=== PATIENT | female | born 1935 | race Caucasian/White ===

== ENCOUNTER 2017-05-06 08:44 | Inpatient (IN) | payer MEDICARE, OTHER ==
[~2017-05-06] VITALS: Ht 162.6 cm; Wt 88.4 kg
--- NOTE | ~2017-05-06 | US140 ---
[facility] A Service of [facility] & [facility] RADIOLOGY TEXT RESULTS PATIENT: ALEXANDER QUINONEZ LOCATION: [facility] 327-01 : 36 UNIT #: [id number] AGE: [address]: Mareg Ronquillo MD SEX: F ORDER DR: [id number] [facility] [address] [place], [place] [address] [id number] I MR#: [id number] Acc #: [id number] NAME: ALEXANDER QUINONEZ : 1935 SEX: F STUDY DATE/TIME: 05/09/2017 10:14 UNIT: [address] ROOM: [facility] STUDY DESCRIPTION: US UE Veins Unilat or Ltd Stdy Ordering Physician: Marge Ronquillo M.D. MEDICAL IMAGING REPORT This report is preliminary unless electronic signature is present EXAM Left upper extremity duplex Doppler venous ultrasound COMPARISON STUDIES None. HISTORY 81-year-old female with edema and bruising of the left arm since yesterday. FINDINGS Left internal jugular vein, subclavian, axillary, cephalic, basilic and brachial veins are fully compressible with internal color flow. IMPRESSION No evidence of venous thrombosis in the left upper extremity. Dictated by... Chris Garcia M.D. THIS IS AN ELECTRONICALLY VERIFIED REPORT Chris Garcia M.D. at 05/15/2017 9:13 PM LORRAINE/etelvina TD: 05/09/2017 15:27 JOB #: [id number] MEDICAL IMAGING REPORT Page 1 of 1 COPY
--- NOTE | ~2017-05-06 | FU ---
[facility] Nutrition Therapy DATE: 05/14/17 Patient: ALEXANDER QUINONEZ Physician: ZACKERY Address: [address] [place] [address] Room/Bed: [address] [place] [address], Zip: [place] [address] Admit Date: 05/06/17 Date of : 36 Height: 5 4 Weight: 194 88.4 NUTRITION MONITORING/FOLLOW-UP: Reason: Consult for enteral nutrition recommendations Anthropometrics: Ht: 64" Wt: 86 kg BMI: 32 Wt 05/14: 88.4 kg Labs: Na+ 133 K+ 3.2 Cl- 99 Gluc 155 BUN 7 Creat 0.5 Ca++ 8.2 Accuchecks 144-173 HgbA1C 6.3 Meds: Zestril, novolog, NaCl, KCl, spironolactone, protonix, lipitor I&O's: , last BM 05/08 Skin: Redness to sacral area Edema: 2+ LUE 1+ RUE Estimated Nutrition Needs: 2465-7301 kcals (18-22 kcals/kg) 86-103 grams protein (1.0-1.2 grams/kg) Diet: Pureed with NTL (currently NPO in Layer) Assessment: Chart reviewed, events noted. Pt is now POD#1 for PEG placement for poor nutritional intake. RD consulted to recommend enteral nutrition regimen. Per information in chart, surgical team wishes to start enteral nutrition at 30 ml/hr. RD spoke with MD, who reports that the pt is likely consuming ~20% of meals and will remain on diet per SCIENCE AND OPERATIONS OFFICER recommendations. Per previous nutrition assessment on 05/11, the pt's intake was poor. Pt is likely being discharged to rehab today per MD noted. Nutrition diagnosis updated. Dx: Inadequate oral intake RT CVA, poor appetite AEB RN report, SCIENCE AND OPERATIONS OFFICER evaluation, PEG placed- ACTIVE Intervention: 1. Diet per SCIENCE AND OPERATIONS OFFICER 2. Enteral nutrition Monitoring, Evaluation and Goals: 1. Oral intake; consume 50-100% of meals- NOT MET 2. GI; promote regular GI function- NOT MET (BM NOT DOCUMENTED SINCE 05/08) [facility] Nutrition Therapy DATE: 05/14/17 Patient: ALEXANDER QUINONEZ Physician: ZACKERY Address: [address] [place] [address] Room/Bed: [address] [place] [address], Zip: [place] [address] Admit Date: 05/06/17 Date of : 36 Height: 5 4 Weight: 194 88.4 3. Skin; prevent breakdown- MET/ IN PROGRESS NEW GOALS (IN ADDITION TO ABOVE): 1. Enteral nutrition; tolerate and provide >80% goal volume x 24 hrs Recommendations: 1. Once medically feasible, initiate enteral nutrition with Jevity 1.5 @ 30 mL/hr per surgical team orders. If ok per surgical team, recommend to increase by 10 mL q 8 hrs as tolerated to goal of 50 mL/hr. This will provide: 1800 kcals/ 76 grams protein/ 912 mL free H20 2. Continue diet per SCIENCE AND OPERATIONS OFFICER recommendations, and continue SCIENCE AND OPERATIONS OFFICER at rehab if the pt is discharged. 3. Encourage and assit with PO intake. Pt requires feeding assistance. 4. Replete electrolytes to WNL PRN (K+, Na+, Ca++ low). 5. Optimize the pt's bowel regimen, with last noted BM 05/08. Status: Pt is at moderate nutritional risk. RD will follow hospital course per protocol. Respectfully, STACY SHAH RD, LD Food and Nutritional Services [facility] cc: client file
--- NOTE | ~2017-05-06 | CR58 ---
[facility] A Service of [facility] & [facility] RADIOLOGY TEXT RESULTS PATIENT: ALEXANDER QUINONEZ LOCATION: [facility] CICCU3-21 : 36 UNIT #: [id number] AGE: [address]: Thiago Villaseñor MD SEX: F ORDER DR: [id number] [facility] [address] [place], [place] [address] [id number] P MR#: [id number] Acc #: [id number] NAME: ALEXANDER QUINONEZ : 1935 SEX: F STUDY DATE/TIME: 05/06/2017 09:40 UNIT: [facility] ROOM: STUDY DESCRIPTION: CR Cervical Spine 2 or 3 Views Attending Physician: Thania Orourke M.D. Ordering Physician: Thania Orourke M.D. MEDICAL IMAGING REPORT This report is preliminary unless electronic signature is present EXAM Cervical spine series, 05/06/2017 09:40 hours HISTORY 81-year-old with history of diabetes complaining of neck pain, left body weakness and altered mental status today. COMPARISON None FINDINGS AP, lateral, lateral swimmer's view and open mouth views were performed. Films are limited. C1-C7 are visualized on the swimmer's view. There is no prevertebral soft tissue swelling or fracture. There is multilevel facet degenerative change. No acute malalignment. IMPRESSION Somewhat limited films do demonstrate C1-T1 on the swimmer's view. No fracture, disc height loss or malalignment is seen. Dictated by... Cayla Jade M.D. THIS IS AN ELECTRONICALLY VERIFIED REPORT Cayla Jade M.D. at 05/06/2017 2:31 PM ELLIE/heather TD: 05/06/2017 10:55 JOB #: [id number] MEDICAL IMAGING REPORT Page 1 of 1 COPY
--- NOTE | ~2017-05-06 | CT71 ---
[facility] A Service [facility] RADIOLOGY TEXT RESULTS PATIENT: ALEXANDER QUINONEZ LOCATION: [facility] : 36 UNIT #: [id number] AGE: [address]: REGINALD GARZAJ V SEX: F ORDER DR: [id number] [facility] [address] [place], [place] [address] [id number] I MR#: [id number] Acc #: [id number] NAME: ALEXANDER QUINONEZ : 1935 SEX: F STUDY DATE/TIME: 05/06/2017 23:57 UNIT: [facility] ROOM: [facility] STUDY DESCRIPTION: CT Head Wo Contrast Attending Physician: Thiago Villaseñor M.D. Ordering Physician: Matt Christian M.D. Primary Care Physician: Primary Care Physician No MEDICAL IMAGING REPORT This report is preliminary unless electronic signature is present EXAM CT scan of the head without contrast INDICATION Left-sided weakness and slurred speech starting today at 7 a.m. Patient has had tPA. Also has headaches, confusion and dementia. COMPARISON 05/06/2017 08:55. FINDINGS Unenhanced images were obtained through the brain. This CT examination was performed with one or more of the following radiation dose reduction techniques: automatic exposure control, adjustment of mA and/or kV according to patient size, and iterative reconstruction. There is generalized atrophy. There is some old ischemic change in the left parietal occipital cortex. There is no hemorrhage. IMPRESSION Atrophy and old left parietal occipital ischemic change. No evidence of hemorrhage. Dictated by... Kameron Miguel M.D. THIS IS AN ELECTRONICALLY VERIFIED REPORT Kameron Miguel M.D. at 05/07/2017 1:32 PM PATRICE/davide [facility] A Service [facility] RADIOLOGY TEXT RESULTS PATIENT: ALEXANDER QUINONEZ LOCATION: [facility] : 36 UNIT #: [id number] AGE: [address]: JUAN GARZA V SEX: F ORDER DR: TD: 05/07/2017 08:21 JOB #: [id number] MEDICAL IMAGING REPORT Page 1 of 1 COPY
--- NOTE | ~2017-05-06 | EKG ---
PATIENT: ALEXANDER QUINONEZ UNIT #: [id number] Ventricular Rate: 57 BPM Atrial Rate: 57 BPM P-R Interval: 172 ms QRS Duration: 92 ms Q-T Interval: 496 ms QTC Calculation(Bezet): 482 ms P [place]: -78 degrees Calculated R [place]: -21 degrees Calculated T [place]: 43 degrees Diagnosis Line: Unusual P axis, possible ectopic atrial Diagnosis Line: bradycardia Diagnosis Line: Nonspecific ST and T wave abnormality Diagnosis Line: Prolonged QT Diagnosis Line: Abnormal ECG Diagnosis Line: When compared with ECG of 06-MAY-2017 22:29, Diagnosis Line: Ectopic atrial rhythm has replaced Sinus rhythm Diagnosis Line: T wave inversion no longer evident in Diagnosis Line: Anterolateral leads Diagnosis Line: Confirmed by NILS LLANOS MD ([id number]) on Diagnosis Line: 05/10/2017 12:14:36 PM INTERPRETING MD: TRA
--- NOTE | ~2017-05-06 | CT24 ---
[facility] A Service of [facility] & [facility] RADIOLOGY TEXT RESULTS PATIENT: ALEXANDER QUINONEZ LOCATION: [facility]3-21 : 36 UNIT #: [id number] AGE: [address]: Thiago Villaseñor MD SEX: F ORDER DR: [id number] [facility] [address] [facility] [place], [place] [address] [id number] P MR#: [id number] Acc #: [id number] NAME: ALEXANDER QUINONEZ : 1935 SEX: F STUDY DATE/TIME: 05/06/2017 9:04 UNIT: [facility] ROOM: STUDY DESCRIPTION: CT Angio Neck Stroke Attending Physician: Thania Orourke M.D. Ordering Physician: Thania Orourke M.D. MEDICAL IMAGING REPORT This report is preliminary unless electronic signature is present EXAM CT scan of the neck with contrast with carotid CT angiography. HISTORY Left-sided weakness, slurred speech onset this morning. FINDINGS Please see CT angio head for results. Dictated by... Tyler Arriaga M.D. THIS IS AN ELECTRONICALLY VERIFIED REPORT Tyler Arriaga M.D. at 05/06/2017 4:33 PM ROLLY/kacie TD: 05/06/2017 10:53 JOB #: [id number] MEDICAL IMAGING REPORT Page 1 of 1 COPY
--- NOTE | ~2017-05-06 | CR150 ---
[facility] A Service of [facility] RADIOLOGY TEXT RESULTS PATIENT: ALEXANDER QUINONEZ LOCATION: [facility]- : 36 UNIT #: [id number] AGE: [address]: Thiago Villaseñor MD SEX: F ORDER DR: [id number] [facility] [address] [place], [place] [address] [id number] P MR#: [id number] Acc #: [id number] NAME: ALEXANDER QUINONEZ : 1935 SEX: F STUDY DATE/TIME: 05/06/2017 09:46 UNIT: SANKET ROOM: STUDY DESCRIPTION: CR Hip Min 2 Views Lt Attending Physician: Thania Orourke M.D. Ordering Physician: Thania Orourke M.D. MEDICAL IMAGING REPORT This report is preliminary unless electronic signature is present EXAM Left hip 05/06/2017 0946 hours HISTORY 81-year-old with left hip pain, left body weakness, altered mental status today. COMPARISON None. FINDINGS AP pelvis and frog lateral view left hip demonstrate joint space loss and spurring at both hips and both sacroiliac joints and the pubic symphysis. There is no acute fracture seen. There is a Bell catheter in the bladder and some contrast in the ureters and bladder likely from earlier CT angiogram of the head contrast administration. IMPRESSION No pelvic or hip fracture. There is degenerative change at the sacroiliac joints, hip joints and pubic symphysis. Dictated by... Cayla Jade M.D. THIS IS AN ELECTRONICALLY VERIFIED REPORT Cayla Jade M.D. at 05/06/2017 2:31 PM ELLIE/davide TD: 05/06/2017 10:57 JOB #: [id number] MEDICAL IMAGING REPORT [facility] A Service of [facility] RADIOLOGY TEXT RESULTS PATIENT: ALEXANDER QUINONEZ [facility]ATION: [facility] : 36 UNIT #: [id number] AGE: [address]: Thiago Villaseñor MD SEX: F ORDER DR: Page 1 of 1 COPY
--- NOTE | ~2017-05-06 | FU ---
[facility] Nutrition Therapy DATE: 05/11/17 Patient: ALEXANDER QUINONEZ Physician: ZACKERY Address: [address] [place] [address] Room/Bed: [address] [place] [address], Zip: [place] [address] Admit Date: 05/06/17 Date of : 36 Height: 5 4 Weight: 187 85 NUTRITION MONITORING/FOLLOW-UP: Reason: Nutrition follow-up 81 y/o female admitted for CVA Anthropometrics: ht: 5'4" wt: 187# (85 kg) BMI 32 -Admit weight: 189# Labs: Cl- 114, Glu 148, Alb 2.6, Accuchecks 138-170, HgbA1c 6.3 Meds: zestril, plavix, novolog, NaCl I&O's: 1365/950. BM 05/08 Skin: previously noted Diet: pureed + nectar thickened liquids Assessment: Chart reviewed, events noted. Pt seen for nutrition follow up. Pt currently on pureed diet + nectar thickened liquids. RD internet sales director visited pt at bedside, pt very confused and lethargic, unable to report what she had for breakfast. Pt reports having a poor appetite. Pt was agreeable to ensure pudding BID to increase intake. RN reported that the pt ate <25% of her breakfast. RD to continue to follow. Dx: Inadequate oral intke r/t CVA, current condition AEB NPO status -ACTIVE/RESOLVED NEW Dx: Inadequate oral intake r/t current condition, poor appetite aeb pt and RN report, SNOW MAKER following. Intervention: 1. Pureed diet + nectar thick liquids Monitoring, Evaluation and Goals: 1. Intake; per SNOW MAKER, if diet advanced, consume/tolerate >50% of all meals -NOT MET 2. Enteral nutrition; if appropriate and if initiated provide >80% estimated goal volume -NOT ACTIVE/UNMEASURED 3. GI; promote regular GI function -IN PROGRESS 4. Skin; prevent skin breakdown -MET/IN PROGRESS New Goals: 1. Intake; consume/tolerate >50% of all meals and supplements [facility] Nutrition Therapy DATE: 05/11/17 Patient: ALEXANDER QUINONEZ Physician: ZACKERY Address: [address] [place] [address] Room/Bed: [address] [place] [address], Zip: [place] [address] Admit Date: 05/06/17 Date of : 36 Height: 5 4 Weight: 187 85 Recommendations: 1. Add healthy heart diet order to current pureed diet + nectar thickened liquids. 2. Chocolate Magic Cup BID with meals. 3. Encourage adequate PO intake. Patient may need assistance with ordering meals. RD will f/u per protocol as pt is at mild/moderate nutritional risk. Respectfully, VILLA VICKERS, internal grinding machine operator Ryan Pandey MS, RD, LD Food and Nutritional Services [facility] cc: client file
--- NOTE | ~2017-05-06 | HM ---
Unit #: [id number] #: [id number] Patient: ALEXANDER QUINONEZ [id number] [place], [place] [address] [id number] I MR#: [id number] NAME: ALEXANDER QUINONEZ : 1935 SEX: F STUDY DATE/TIME: 05/11/2017 UNIT: C3A PCU ROOM: [facility] STUDY DESCRIPTION: Attending Physician: Marge Ronquillo M.D. Primary Care Physician: No Primary Care Physician CARDIOLOGY REPORT EXAM 24-hour Holter monitor. DATE APPLIED 05/11/2017 DATE SCANNED 05/12/2017 READ BY [facility]. ORDERED BY Apolonia Villaseñor A.P.R.N. REASON FOR STUDY Rule out atrial fibrillation, left-sided weakness. SUMMARY The patient was monitored for about 15 hours. There were many breaks in the monitoring cycle. A total of 20,925 QRS complexes were analyzed, 10% of which were supraventricular in origin. Minimum heart rate was 48 beats per minute. The rhythm was sinus throughout. Average heart rate 63 beats per minute and maximum heart rate 86 beats per minute at approximately 7 p.m. There were no significant pauses. Supraventricular ectopy: 1780 isolated beats with several couplets, bigeminal in runs. The fastest run of the 14 runs was just three beats in duration at 151 beats per minute. Ventricular ectopy: 67 isolated beats with no runs. Symptoms: None. IMPRESSION 1. Very short monitoring. 2. No significant dysrhythmias. Dictated by... Jorge Luis Guajardo M.D. Unit #: [id number] #: [id number] Patient: ALEXANDER QUINONEZ KARLA/hosea TD: 05/13/2017 12:38 JOB #: [id number] CARDIOLOGY REPORT Page 1 of 1 X Jorge Luis Guajardo MD HOLTER MONITOR REPORT
--- NOTE | ~2017-05-06 | CO ---
Unit #: [id number] #: [id number] Patient: ALEXANDER QUINONEZ [id number] [facility] [address] [facility]. [place], [place] [address] [id number] Gissel MR#: [id number] NAME: ALEXANDER QUINONEZ ROOM: CIC3 Age: 81 Sex: F Admission Date: 05/06/2017 : 1935 Attending Physician: Thiago Villaseñor M.D. Primary Care Physician: Heena Primary Care Physician Requesting Physician: Thania Orourke M.D. Consultation Date: 05/06/2017 CONSULTATION REPORT PATIENT IDENTIFICATION This is an 81-year-old female evaluated initially in the emergency room. She is now currently in ICU 21 at [facility]. The patient was seen initially via the robot by Dr. Christian as part of code stroke protocol in the emergency room. I followed up with evaluation in person in the emergency room and we both followed up in the ICU with reevaluation after the patient was transferred up here. HISTORY OF PRESENT ILLNESS This is an 81-year-old female with a past medical history of dementia, questionable diabetes and prior infarct seen on the CT scan. She presents to [facility] with new onset fall, left-sided weakness and slurred speech. Her last known well was about 7 o'clock this morning. She apparently lives in an assisted living type facility and was last seen at 7 o'clock in the morning at her normal baseline. She was then found an hour or so later and she had fallen in the floor. Her left side was weak. EMS was called and she was brought here as a code stroke. Dr. Christian evaluated the patient via the robot and given that she had a measurable disabling deficit on exam and she was within the window, he elected to treat her with IV Alteplase, which she received. Please see the code stroke form. She arrived at the emergency department at 8:43. She received Alteplase at 9:28. She was admitted to the ICU for further evaluation. Her initial NRH was 7. Her weakness and facial droop have improved some. She has some fluctuations in her mental status. Her son reports that she has dementia at baseline. She does not have any new or worsening focal deficits or any complaints of headache. She is noted to have lack of horizontal movement of her right eye, which was not clearly seen initially, but looking at her MRI that we did STAT she does have a pontine infarct. Dr. Christian believes that is part of her evolution of stroke and recommends continuing treatment. She went for MRI at approximately 12:45 after Alteplase was administered. There is no evidence of hemorrhage on evaluation. She has had some blood pressure fluctuations, but she tenses up when checking her blood pressure with automatic cuff. When nursing checks her blood pressure manually it is well within the parameters for treatment. She has received one dose of IV hydralazine and we have been hesitant to give her any labetalol as she is in sinus bradycardia with a heart rate in the 50s. There has been no report of any exacerbating or alleviating factors. Again, she was treated with IV Alteplase. On arrival her head CT showed generalized atrophy and two small chronic infarcts in the left MCA distribution, but no acute findings in the right cerebral hemisphere or acute findings otherwise and no hemorrhage. CT angiogram of the head and neck was done, which does show areas of stenosis and significant atherosclerotic intracranial disease and this is prominently involving the proximal half of the basilar Unit #: [id number] #: [id number] Patient: QUINONEZ,ALEXANDER artery, the distal P2 segment of the SKIVER COUNTER on the right and the distal aspect of the right M1 segment, but no clot or vascular cutoff seen. The patient's stroke is subcortical. Carotid bifurcations are widely patent with no stenosis by NASCET criteria and no major branch vessel cutoff seen intracranially. Noted nonspecific ground glass infiltrate or mass of the superior segment of the right lower lobe. Refer to the primary for consideration of dedicated chest CT for further evaluation. The patient shows no signs of CHF or fluid overload on examination. Her BNP is 51. Her urinalysis shows 100 glucose, but is otherwise unremarkable. CBC on admission shows a white blood cell count of 9.2, hemoglobin 11.5, hematocrit 35.7 and platelet count of 142. PAST MEDICAL HISTORY 1. Dementia. 2. Borderline diabetes per the emergency room notes. 3. Prior infarcts on the CT scan. SOCIAL HISTORY The patient lives at an assisted living facility. She has baseline dementia. No tobacco use, alcohol abuse or illicit drug use. FAMILY HISTORY Noncontributory given her stated age of 81. ALLERGIES No known drug allergies. HOME MEDICATIONS According to the son, she only takes one medication at home and believes it to be Aricept. REVIEW OF SYSTEMS Unable to fully obtain from the patient. Otherwise pertinent positives are as listed above. Otherwise negative. Fourteen point review of systems was attempted. PHYSICAL EXAMINATION VITALS: Temperature 97.8, afebrile, pulse 53, respiratory rate 20, last manual blood pressure was 165 systolic. She has had some elevated pressures over 180/105 following Alteplase administration. She has received hydralazine. However, with repeat manual pressures they are consistently below 180/105. She does have trouble tolerating the cuff and lying still with the automatic blood pressure machine. NEUROLOGIC EXAMINATION The patient has been a little bit drowsy since she arrived, but she is arousable. She is not fully oriented. She can follow simple commands. She does not appear to have any aphasia. She is dysarthric. She does not appear to have any apraxia. CRANIAL NERVES: She demonstrates full zavaleta of vision. Eyes initially appear to be conjugate, but now on repeat evaluation she appears to have no horizontal movement of the right eye. This is confirmed with evaluation by Dr. Christian. No ptosis. She does have some nystagmus of the left eye. Sensation of the face and scalp is intact. Strength of muscles of facial expression, she had left facial weakness that appeared to be significantly improved, but she does appear to have some upon reevaluation, but no significant flattening of nasal labial fold, but there is some asymmetry present. She is still dysarthric. Hearing is Unit #: [id number] #: [id number] Patient: ALEXANDER QUINONEZ intact to conversation. Tongue is midline and unable to visualize uvula and palate. Head turning is unremarkable. Shoulder shrug is unremarkable spontaneously. Neck is supple. MOTOR: Her left side still appears to be weak. She can commercial manager and pull, but she appears to be fall to the bed quickly. Again, she has some movement against gravity. Also with the leg, she has some movement against gravity, but she still is weak. The right side is intact. SENSORY: Limited, but she does withdraw from noxious stimuli. Gait and Romberg are deferred. REFLEXES: Unable to elicit. COORDINATION: Unable to assess in the left side, given the weakness. She does not appear to have any spontaneously observed ataxia out of proportion to her weakness on the left side. No ataxia on the right side. GAIT/ROMBERG: Deferred. DIAGNOSTIC STUDIES IMAGING: Please see above. MRI of the brain without contrast on 05/06/2017 again does show an nonhemorrhagic acute stroke in the right paramidline aspect of the per, extending to the right lateral aspect, measuring 2 x 1 cm. There are scattered multiple hyperintense T2 signal lesions noted in the supratentorial white matter, with a larger component to the left frontal and left parietal occipital lobes, also seen in bilateral cerebellar hemispheres, bilateral insular cortices and adjacent white matter, likely related to mild to moderate chronic microvascular ischemia change and old lacunar infarcts. No hydrocephalus, acute hemorrhage, midline shift or obvious large space occupying mass. LABORATORY: Please see above. All labs have been reviewed and are as per chart and discussed above. IMPRESSION 1. Acute subcortical ischemic stroke in the right paramidline aspect of the mid per, extending to the right lateral aspect, with left hemiparesis and dysarthria. 2. Dementia. 3. Encephalopathy. 4. 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 5. Sinus bradycardia. 6. Hypertension. PLAN We will monitor the patient closely in the ICU per post Alteplase orders and protocol. The patient's blood pressure is being managed below 180/105 and nursing has been instructed to call if further intervention is needed to maintain her pressure less than 180/105. She is being monitored closely in the ICU. Further recommendations pending workup and further clinical course. The patient was seen by Dr. Christian via the robot and also with reevaluation in house. He agrees with the above. We will follow along with you. We thank you very much for allowing us to assist in the care of this patient. Dictated by... Марина Arechiga A.P.R.N. for Unit #: [id number] #: [id number] Patient: ALEXANDER QUINONEZ M.D. K[facility]/tomas TD: 05/07/2017 08:17 JOB #: [id number] CONSULTATION REPORT Page 1 of 1 X Марина Arechiga APRN X CONSULTATION REPORT
--- NOTE | ~2017-05-06 | EKG ---
PATIENT: ALEXANDER QUINONEZ UNIT #: [id number] Ventricular Rate: 52 BPM Atrial Rate: 52 BPM P-R Interval: 160 ms QRS Duration: 86 ms Q-T Interval: 456 ms QTC Calculation(Bezet): 424 ms Calculated R [place]: -14 degrees Calculated T [place]: 140 degrees Diagnosis Line: Sinus bradycardia Diagnosis Line: T wave abnormality, consider lateral ischemia Diagnosis Line: Abnormal ECG Diagnosis Line: When compared with ECG of 08-MAY-2017 06:02, Diagnosis Line: Sinus rhythm has replaced Atrial fibrillation Diagnosis Line: Vent. rate has decreased BY 33 BPM Diagnosis Line: Confirmed by ANDREA MENDEZ MD ([id number]) on Diagnosis Line: 05/14/2017 7:27:18 AM INTERPRETING MD: ANDREA FAJARDO
--- NOTE | ~2017-05-06 | A ---
[facility] Nutrition Therapy DATE: 05/07/17 Patient: ALEXANDER QUINONZE Physician: ZACKERY Address: [address] [place] [address] Room/Bed: [address], Zip: [place] [address] Admit Date: 05/06/17 Date of : 36 Height: 5 4 Weight: 189 86 NUTRITIONAL ASSESSMENT: REASON: CVA, s/p tPA 81 y/o female admitted for CVA, found down PMH: ?DM, dementia Anthropometrics: ht: 5'4" wt: 189# (86 kg) BMI 32 Labs: K+ 3.4, Glu 210, Accuchecks 110-232, Alb 3.3 Meds: novolog (low dose), NaCl I/O & Bowel function: 2299/2145. BM unknown Skin Integrity: Intact abrasion- RT inner knee; bruise- LT shoulder, ALICIA No edema Estimated Nutrition Needs: 3142-3525 kcal (22-26 kcal/kg) 86-111 g protein (1.0-1.3 g/kg) fluids consistent with kcals or per MD Assessment: Chart reviewed, events noted. Pt in ICU on 2L nasal canula and currently NPO awaiting head CT and TRANSPORT RN evaluation. The pt was transported to the ER after being found down at the assisted living facility she resides at. The pt was treated for a stroke with tPA. Per RN, the patient has dementia and is very confused, not appropriate for nutrition interview at this time. Please see recommendations, RD will continue to follow. Dx: Inadequate oral intake r/t CVA, current condition AEB NPO status, stroke protocol Intervention: 1. NPO 2. Diet advancement per TRANSPORT RN Monitoring, Evaluation and Goals: 1. Intake; per TRANSPORT RN, if diet advanced, consume/tolerate >50% of all meals 2. Enteral nutrition; if appropriate and if initiated, provide >80% estimated goal volume 3. GI; promote regular GI function 4. SKin; prevent skin breakdown Recommendations: [facility] Nutrition Therapy DATE: 05/07/17 Patient: ALEXANDER QUINONEZ Physician: ZACKERY Address: [address] [place] [address] Room/Bed: [address], Zip: [place] [address] Admit Date: 05/06/17 Date of : [birth year] Height: 5 4 Weight: 189 86 1. Per TRANSPORT RN evaluation, if pt's diet is advanced, recommend healthy heart diet. Monitor intake. 2. If pt inappropriate for diet, recommend initiating enteral nutrition support of Jevity 1.5 @ 20 mL/hr and advance q 8 hours to goal rate of 60 mL/hr x 24 hours. This will provide 2160 kcal, 91 g protein, and 1094 mL h20. Free water flushes per MD. 3. Please obtain new HgbA1c to further assess pt's possible diabetes. RD will f/u per protocol as pt is at moderate nutritional risk. Respectfully, VILLA VICKERS, international logistics analyst Марина Zamora, RD, LD [employer] [facility] cc: client file
--- NOTE | ~2017-05-06 | CO ---
Unit #: [id number] #: [id number] Patient: ALEXANDER QUINONEZ [id number] [address] [place], [place] [address] [id number] I MR#: [id number] NAME: ALEXANDER QUINONEZ ROOM: 327 Age: 81 Sex: F Admission Date: 05/06/2017 : 1935 Attending Physician: Marge Ronquillo M.D. Primary Care Physician: No Primary Care Physician CONSULTATION REPORT REASON FOR CONSULTATION Bradycardia. HISTORY OF PRESENT ILLNESS This is an 81-year-old white female who was admitted with complaint of weakness and impaired speech. She was admitted with an acute CVA and was treated with tPA. MRI of the brain was noted for a right paramidline aspect of the mid per non-hemorrhagic cerebrovascular accident. The patient has been seen in the Intensive Care Unit. She is unable to provide a history. Speaking to the son per phone, the patient was moved from an assisted living facility in [place] to [place] two weeks ago. She only has a history of dementia and borderline diabetes. She was fairly healthy and ambulatory. During the course of her stay, she developed bradycardia where her heart rates dropped to 40. Rhythm strip noted her to be in a junctional rhythm. There was no high grade AV block. Electrocardiogram showed no acute ischemic changes. Echocardiogram revealed normal left ventricular systolic function with ejection fraction of 50% to 55% with mild aortic stenosis. She has been hypertensive and has been treated with IV hydralazine. PAST MEDICAL HISTORY 1. Dementia. 2. Nonsmoker. 3. Borderline diabetes. PAST SURGICAL HISTORY Unknown. SOCIAL HISTORY The patient recently transitioned from [place] where she lived in an assisted living facility. There is no history of alcohol, tobacco or illicit drug use. FAMILY HISTORY Noncontributory. ALLERGIES No known drug allergies. HOME MEDICATIONS Unavailable. REVIEW OF SYSTEMS Review of systems is limited because of the patient's dementia and current Unit #: [id number] #: [id number] Patient: ALEXANDER QUINONEZ stroke status. She denies shortness of breath. PHYSICAL EXAMINATION VITAL SIGNS: Blood pressure 182/108, heart rate 75, temperature 98.8, BMI is 32. GENERAL: This is an 81-year-old, well developed, mildly obese white female who is in no acute distress. NEUROLOGICAL: She opens her eyes, follows commands when instructed. She has a left facial droop and slurred speech. Right side unable to move. Moves left side on command. NECK: Trachea is midline. No thyromegaly or lymphadenopathy. No jugular venous distention. HEART: S1, S2. Heart sounds are normal. No murmurs or rubs or clicks. Regular rate and rhythm. LUNGS: With poor inspiratory effort without rales, rhonchi or wheezing. ABDOMEN: Soft, obese but bowel sounds are present. EXTREMITIES: Without leg edema. SKIN: Slightly pale and dry. DIAGNOSTIC STUDIES LABORATORY: Glucose 142, BUN 8, creatinine 0.5, sodium 139, potassium 3.6, cholesterol 248, triglycerides 124, LDL 167, HDL 48, TSH 0.55. Troponin less than 0.05 and less than 0.03. White count 14.1, hemoglobin 13.6, hematocrit is 42.3, platelet count is 170. IMAGING: Chest x-ray shows moderate cardiomegaly. Has a right hilum 1.[address] angio of the head and neck shows significant atherosclerotic intracranial disease. Old carotid bifurcations are widely patent. MRI of the head shows nonhemorrhagic acute stroke in the right paramidline aspect of the per. CARDIOVASCULAR: Electrocardiogram on admission shows normal sinus rhythm with a rate of 60 beats/minute. There is anterolateral ischemic changes. Repeat electrocardiogram shows accelerated junctional rhythm with a rate of 57 beats/minute with resolution of the T wave inversion in the anterolateral leads. 2D echocardiogram 05/07/2017, shows ejection fraction of 50% to 55% with mildly dilated left atrium, mild concentric left ventricular hypertrophy, mild aortic stenosis, mild tricuspid regurgitation. Right ventricular systolic pressure 31 mmHg. Cannot comment on shunt with bubble study. IMPRESSION 1. Acute right paramidline aspect of the mid per cerebrovascular accident, status post tPA. 2. Junctional bradycardia. 3. Dementia. 4. Hypertension. PLAN 1. Cardiology was consulted for bradycardia. The patient had an episode of accelerated junctional bradycardia that was brief. She is Unit #: [id number] #: [id number] Patient: ALEXANDER QUINONEZ currently in normal sinus rhythm. 2. TSH is normal. 3. The patient had preserved left ventricular systolic function with no significant heart disease. 4. Continue IV hydralazine as needed for blood pressure control. 5. Start on statins for hyperlipidemia. 6. It has been discussed with the son by phone about code status and questionable pacemaker if the patient should require it. He is to bring in the Living Will before making any decisions. He is also going to discuss with his family. 7. Will repeat troponin and electrocardiogram. 8. Will follow the patient with you. Thank you for allowing us to assist with this patient's care. Dictated by... Rusty Belcher A.P.R.N. for Lauri Lamas/satya TD: 05/10/2017 10:17 JOB #: [id number] CONSULTATION REPORT Page 1 of 1 X Rusty Belcher APRN X CONSULTATION REPORT
--- NOTE | ~2017-05-06 | CR90 ---
[facility] A Service of [facility] RADIOLOGY TEXT RESULTS PATIENT: ALEXANDER QUINONEZ LOCATION: [facility] 327-01 : 36 UNIT #: [id number] AGE: [address]: JUAN GARZA V SEX: F ORDER DR: [id number] [facility] [address] [facility]. [place], [place] [address] [id number] I MR#: [id number] Acc #: [id number] NAME: ALEXANDER QUINONEZ : 1935 SEX: F STUDY DATE/TIME: 05/07/2017 18:41 UNIT: [facility] ROOM: [facility] STUDY DESCRIPTION: CR Elbow 2 View Lt Attending Physician: Juan Garza Ordering Physician: Ed Dawit Salazar M.D. Primary Care Physician: No Primary Care Physician MEDICAL IMAGING REPORT This report is preliminary unless electronic signature is present EXAM Left elbow series 05/07/2017 HISTORY 81-year-old female in the ED found down at halfway yesterday. Elbow pain and bruising. TECHNIQUE 3-view left elbow series. FINDINGS No fracture, dislocation or other acute osseous abnormality is demonstrated. Mild degenerative arthropathy is noted. IMPRESSION No visible fracture or other acute osseous abnormality. Mild degenerative arthropathy involving the elbow joint. Dictated by... Willem Aguilar M.D. THIS IS AN ELECTRONICALLY VERIFIED REPORT Willem Aguilar M.D. at 05/08/2017 4:55 PM GENW/veronique TD: 05/08/2017 00:38 JOB #: [id number] MEDICAL IMAGING REPORT Page 1 of 1 COPY
--- NOTE | ~2017-05-06 | EKG ---
PATIENT: ALEXANDER QUINONEZ UNIT #: [id number] Ventricular Rate: 85 BPM Atrial Rate: 97 BPM QRS Duration: 86 ms Q-T Interval: 390 ms QTC Calculation(Bezet): 464 ms Calculated R [place]: -4 degrees Calculated T [place]: 148 degrees Diagnosis Line: Atrial fibrillation Diagnosis Line: T wave abnormality, consider anterolateral Diagnosis Line: ischemia or digitalis effect Diagnosis Line: Abnormal ECG Diagnosis Line: When compared with ECG of 07-MAY-2017 15:42, Diagnosis Line: (unconfirmed) Diagnosis Line: Atrial fibrillation has replaced Ectopic atrial Diagnosis Line: rhythm Diagnosis Line: Vent. rate has increased BY 28 BPM Diagnosis Line: T wave inversion now evident in Anterolateral Diagnosis Line: leads Diagnosis Line: Confirmed by NILS LLANOS MD ([id number]) on Diagnosis Line: 05/10/2017 12:15:28 PM INTERPRETING MD: TRA
--- NOTE | ~2017-05-06 | EKG ---
PATIENT: ALEXANDER QUINONEZ UNIT #: [id number] Ventricular Rate: 63 BPM Atrial Rate: 63 BPM P-R Interval: 164 ms QRS Duration: 92 ms Q-T Interval: 424 ms QTC Calculation(Bezet): 433 ms Calculated R [place]: -22 degrees Calculated T [place]: 160 degrees Diagnosis Line: Sinus rhythm with Premature atrial complexes Diagnosis Line: T wave abnormality, consider anterolateral Diagnosis Line: ischemia Diagnosis Line: Abnormal ECG Diagnosis Line: When compared with ECG of 06-MAY-2017 09:26, Diagnosis Line: (unconfirmed) Diagnosis Line: No significant change was found Diagnosis Line: Confirmed by ANDREA MENDEZ MD ([id number]) on Diagnosis Line: 05/07/2017 9:05:05 AM INTERPRETING MD: ANDREA FAJARDO
--- NOTE | ~2017-05-06 | MR18 ---
[facility] A Service of [facility] RADIOLOGY TEXT RESULTS PATIENT: ALEXANDER QUINONEZ LOCATION: [address] : 36 UNIT #: [id number] AGE: [address]: Thiago Villaseñor MD SEX: F ORDER DR: [id number] [facility] [address] [place], [place] [address] [id number] I MR#: [id number] #: [id number] NAME: ALEXANDER QUINONEZ : 1935 SEX: F STUDY DATE/TIME: 05/06/2017 11:32 UNIT: [facility] ROOM: [facility] STUDY DESCRIPTION: MR Brain Wo Contrast Attending Physician: Thiago Villaseñor M.D. Ordering Physician: Марина Arechiga A.P.R.N. Primary Care Physician: Primary Care Physician No MRI CENTER REPORT This report is preliminary unless electronic signature is present. EXAM MRI of the brain without contrast dated 05/06/[address] head without contrast dated 05/06/2017. HISTORY Left-sided weakness, slurred speech from 07:00 a.m. today. FINDINGS There is a restricted diffusion lesion noted in the tho-ci-wkwkd side of mid per measuring 2.0 x 1 cm, non hemorrhagic. There are multiple hyperintense T2-signal lesions in the periventricular and subcortical white matter with the larger components extending to the cortex in the left frontal lobe and left parietooccipital lobes. They were also seen in the prior CT. Scattered small hyperintense T2 lesions are in bilateral insular cortices and bilateral cerebellar hemispheres. No acute stroke, space-occupying intracranial mass, mass effect, midline shift or hydrocephalus. Vascular flow voids of the major cerebral arteries and dural venous sinuses are not completely occluded in these thicker slices. IMPRESSION 1. Non-hemorrhagic acute stroke is noted in the right paramidline aspect of the mid per extending to the right lateral aspect. It measures 2.0 x 1 cm. 2. Scattered multiple hyperintense T2-signal lesions are noted in the supratentorial white matter with the larger components in left frontal and left parietooccipital lobes. They are also seen in bilateral cerebellar hemispheres, bilateral insular cortices and adjacent white matter. They are likely related to mild to moderate chronic microvascular ischemic change and old lacunar infarcts. 3. No hydrocephalus, acute hemorrhage, midline shift or obvious large space-occupying mass. [facility] A Service of [facility] RADIOLOGY TEXT RESULTS PATIENT: ALEXANDER QUINONEZ LOCATION: [address] : 36 UNIT #: [id number] AGE: [address]: Thiago Villaseñor MD SEX: F ORDER DR: 4. Refer to CT angiogram head and neck from 05/06/2017. Dictated by... Love Allen M.D. THIS IS AN ELECTRONICALLY VERIFIED REPORT Love Allen M.D. at 05/06/2017 3:07 PM CPR/mjs TD: 05/06/2017 14:20 JOB #: [id number] MRI CENTER REPORT Page 1 of 1 COPY
--- NOTE | ~2017-05-06 | HP ---
Unit #: [id number] #: [id number] Patient: ALEXANDER QUINONEZ [id number] [facility]. [place], [place] [address] [id number] I MR#: [id number] NAME: ALEXANDER QUINONEZ ROOM: [facility] Age: 81 Sex: F Admission Date: 05/06/2017 : 1935 Attending Physician: Thiago Villaseñor M.D. Primary Care Physician: No Primary Care Physician HISTORY AND PHYSICAL CHIEF COMPLAINT Found down. HISTORY OF PRESENT ILLNESS The patient is an 81-year-old female who presented to [facility] emergency department after being found down in her assisted living facility. Apparently she had been seen normal at 7:00 p.m. and then approximately an hour later she was noted to be on the floor. She was noted to have left-sided weakness. She was brought to the emergency department where ultimately she was given TPA/alteplase. The patient is quite confused, does not recall the event and is unable to provide me with any sort of history whatsoever. PAST MEDICAL HISTORY Gleaned from prior records, the patient appears to have "borderline diabetes." PAST SURGICAL HISTORY Unable to obtain. SOCIAL HISTORY Unable to obtain. HOME MEDICATIONS None. ALLERGIES No known drug allergies. REVIEW OF SYSTEMS Unable to obtain. PHYSICAL EXAMINATION VITAL SIGNS: Temperature 96.1. Pulse 53. Blood pressure 165/74. GENERAL: An 81-year-old female in no acute distress who appears stated age. HEENT: Pupils are equally round. Extraocular movements intact. Mucous membranes dry. NECK: No JVD. No lymphadenopathy. CARDIAC: Regular rate and rhythm. No murmurs, gallops or rubs. LUNGS: Clear to auscultation bilaterally. ABDOMEN: Nontender, nondistended. Bowel sounds positive. Unit #: [id number] #: [id number] Patient: ALEXANDER QUINONEZ EXTREMITIES: No cyanosis, clubbing or edema. They are warm and dry. PSYCHIATRIC: Patient is alert and oriented x1 only. She is somewhat confused. NEUROLOGICAL: Patient has decreased movement in the left side. This is reportedly somewhat better than it had been previously. The patient complains of some blurred vision. SKIN: No rashes, bruises or ulcers. MUSCULOSKELETAL: No muscle or joint pain. No muscle or joint swelling. DIAGNOSTIC STUDIES LABORATORY: CBC shows a hemoglobin 11.5, otherwise normal. Chemistries show a glucose of 210, potassium 3.4, otherwise normal. ASSESSMENT AND PLAN 1. Stroke: The patient has been started on stroke protocol and MRI is done, results are pending. 2. Hyperglycemia: The patient has been started on insulin per stroke protocol. 3. Prophylaxis: No DVT prophylaxis at this time secondary to her having received TPA. Dictated by Thiago Villaseñor M.D. KATHRYN/russell TD: 05/06/2017 21:26 JOB #: [id number] HISTORY AND PHYSICAL Page 1 of 1 X Thiago Villaseñor MD X HISTORY AND PHYSICAL
--- NOTE | ~2017-05-06 | DS ---
Unit #: [id number] #: [id number] Patient: ALEXANDER QUINONEZ [id number] [address] [address] [id number] I MR#: [id number] NAME: ALEXANDER QUINONEZ ROOM: 327 Age: 81 Sex: F Admission Date: 05/06/2017 : 1935 Discharge Date: Attending Physician: Marge Ronquillo M.D. Primary Care Physician: No Primary Care Physician DISCHARGE SUMMARY DISCHARGE DIAGNOSES 1. Acute stroke with left-sided weakness status post tissue plasminogen activator. 2. Severe oropharyngeal dysphagia. 3. Hyponatremia. 4. Hypokalemia. 5. Left arm swelling. Ultrasound negative for deep vein thrombosis. 6. Toxic metabolic encephalopathy. 7. Bradycardia. 8. Mild hypocalcemia. 9. Mild protein malnutrition. 10. Status post percutaneous endoscopic gastrostomy tube placement on 05/13/2017. 11. Diabetes mellitus type 2 on Accu-Cheks. 12. History of dementia. CONSULTATIONS 1. Dr. Christian. 2. Dr. Mtz. 3. Dr. Mcnair. PROCEDURES The patient had PEG tube placement on 05/13/2017. DIAGNOSTIC TESTING LAB DATA: Glucose 144, sodium 133, potassium 3.2, creatinine 0.5. WBC 12.4, hemoglobin 12.9, platelets 215. IMAGING: Ultrasound of the left upper extremity negative for DVT. X-ray of the left elbow shows no acute fractures. Mild degeneration present. CT of the head shows right paracentral midbrain ischemic infarct present, evolving. MRI of the brain shows nonhemorrhagic acute stroke, right paramidline aspect of the mid per present. Scattered multiple hyperintense lesions present. ALLERGIES None. DISCHARGE MEDICATIONS Unit #: [id number] #: [id number] Patient: ALEXANDER QUINONEZ 1. Lipitor 40 daily. 2. Clonidine 0.1 mg topical every Wednesday. 3. Lisinopril 20 daily. 4. NovoLog low dose sliding scale. 5. Aspirin 81 daily. 6. Plavix 75 daily. 7. Spironolactone 12.5 daily. HOSPITALIZATION COURSE An 81 year old admitted because of unresponsiveness. Acute stroke with left-sided weakness. MRI showing acute stroke in the right paramidline aspect of the mid per. The patient was seen by neurology. The patient received aspirin and Plavix and Lipitor. The patient will be discharged to rehab and follow with neurology as an outpatient and Dr. Gerry Wolff in 4 weeks' time. Acute oropharyngeal dysphagia, likely from stroke. The patient currently had PEG tube placement. She did pass a swallow evaluation, but she could not eat too much. The diet she eats is not sufficient for her nutritional needs, so the son decided on PEG tube placement. Currently she will start on PEG feeding as per campus administrator. Advance at rehab as tolerated. Disability Aide to see at rehab. Hypertension, uncontrolled. Added spironolactone and lisinopril. Diabetes mellitus type 2. Initially she was prediabetic. Currently her sugars are high enough to call as diabetes. She received insulin sliding scale. Continue with that at rehab. Toxic metabolic encephalopathy with lethargy during the hospital course, present on admission. Currently the patient is alert, oriented x1 only. Bradycardia with arrhythmias. No atrial fibrillation as per cardiology. Currently bradycardia resolved. Left arm swelling. No DVT. Likely from immobility. DISCHARGE PLAN 1. Discussed with sonJohn. He agrees for the patient to be discharged to rehab. He insisted that the patient wants PEG tube placement, so I ordered LSA for PEG tube placement. She had it on 05/13/2017. 2. Please note that the patient needs speech and nutritional campus administrator evaluation in rehab. Advance tube feeds as tolerated at rehab. 3. The patient will be discharged to rehab once okay with LSA. 4. Follow with Dr. Gerry Wolff in 4 weeks' time. NOTE: Discharge time taken is 40 minutes. Dictated by... Lauri Brooks/estephania TD: 05/14/2017 11:39 Unit #: [id number] #: [id number] Patient: ALEXANDER QUINONEZ JOB #: [id number] DISCHARGE SUMMARY Page 1 of 1 X Marge Ronquillo MD X DISCHARGE SUMMARY
--- NOTE | ~2017-05-06 | OR ---
Unit #: [id number] #: [id number] Patient: ALEXANDER QUINONEZ [id number] [address] [place], [place] [address] [id number] I MR#: [id number] NAME: ALEXANDER QUINONEZ ROOM: 327 Date of Procedure: 05/13/2017 Admission Date: 05/06/2017 Surgeon: Jorgito Mcnair Jr., M.D. : 1935 Attending Physician: Marge Ronquillo M.D. OPERATIVE REPORT INDICATIONS FOR PROCEDURE The patient is an 81-year-old white female, who was admitted with acute CVA and has been unable to eat and maintain nutrition. It was felt she needed a gastrostomy tube placed firmly endoscopically. She is brought to the endoscopy suite at this time for percutaneous endoscopic gastrostomy with EGD. The patient understands the procedure, her family is giving consent along with her. She also understands the risk apparently. PREOPERATIVE DIAGNOSIS Acute cerebrovascular accident, unable to eat and maintain nutrition. POSTOPERATIVE DIAGNOSES Acute cerebrovascular accident, unable the eat and maintain nutrition, also noting some mild gastritis with a small gastric ulcer in the antrum, which was biopsied. ANESTHESIA MAC anesthesia. PROCEDURE PERFORMED Flexible fiberoptic esophagogastroscopy duodenostomy with biopsy of a small ulcer and percutaneous endoscopic placed gastrostomy. DESCRIPTION OF PROCEDURE The patient was positioned in supine position. After being given MAC anesthesia, the Olympus XQ scope was passed in the proximal esophagus. The entire esophagus was examined. There was no evidence of any esophagitis. No evidence of any stenosis. The scope was advanced through the GE junction and the cardia, and down to the fundic and antral region of the stomach, and retroflexed back up to the area of the cardia. There was a hiatal hernia present. Also evidence of some mild gastritis. The stomach distended well without evidence of rigidity. The scope was advanced down the prepyloric region, where there was a small antral ulcer, which was punctate. Several biopsies were taken from this without significant bleeding. The scope was advanced through the pylorus into the duodenal bulb and down to the second portion of the duodenum. The entire duodenal portion examination was within normal limits. The scope was brought back up into the area of the fundus of the stomach. The stomach inflated with air. The abdomen was prepped and draped in routine fashion for percutaneous endoscopic placed gastrostomy and the left upper quadrant was then locally anesthetized with 1% Xylocaine without epinephrine. A small transverse incision 0.5 cm in length was then made in the left upper Unit #: [id number] #: [id number] Patient: QUINONEZ,ALEXANDER quadrant directly over where the light could be visualized from the scope and the introducing needle was introduced directly into the stomach below the skin and the guidewire introduced and the snare was used to grasp the guidewire and was brought out transorally. The gastrostomy tube was placed over the wire and brought out in an antegrade fashion with the flange being brought up against the anterior gastric wall. The external buttress was placed along with ointment and sponges at the insertion site. The plastic portion of the tube was excised and the port device was then placed. Benzoin and tape were used to secure the tube to the abdominal wall and a Velcro binder placed over this. The endoscope was then placed back down in the stomach and the position of the tube was very good with no evidence of any active bleeding. The scope was removed. The patient tolerated the procedure well and discharged back to floor in satisfactory condition. Dictated by... Jorgito Mcnair Jr., M.D. JMB/irma TD: 05/13/2017 17:38 JOB #: [id number] OPERATIVE REPORT Page 1 of 1 X Jorgito Mcnair MD X PROCEDURE OPERATIVE NOTE
--- NOTE | ~2017-05-06 | CT18 ---
[facility] A Service of [facility] & [facility] RADIOLOGY TEXT RESULTS PATIENT: ALEXANDER QUINONEZ LOCATION: [facility] CICCU3-21 : 36 UNIT #: [id number] AGE: [address]: Thiago Villaseñor MD SEX: F ORDER DR: [id number] [facility] [address] [facility]. [place], [place] [address] [id number] P MR#: [id number] Acc #: [id number] NAME: ALEXANDER QUINONEZ : 1935 SEX: F STUDY DATE/TIME: 05/06/2017 9:04 UNIT: [facility] ROOM: STUDY DESCRIPTION: CT Angio Head Stroke Attending Physician: Thania Orourke M.D. Ordering Physician: Thania Orourke M.D. MEDICAL IMAGING REPORT This report is preliminary unless electronic signature is present EXAM CT scan of the head and neck with contrast with carotid CT angiography. HISTORY Left-sided weakness, slurred speech onset this morning. TECHNIQUE Thin section imaging was obtained from the mid mediastinum to the top of head with contrast. 75 mL of Isovue was used. CT angiography was performed with thick sliding MIPs, curved planar reformats, and 3-D volumetric imaging with surface shaded and volume shaded display. This CT exam was performed with one or more of the following radiation dose reduction techniques: automatic exposure control, adjustment of mA and/or kV according to patient size, and iterative reconstruction. FINDINGS Extravascular structures are remarkable for a ground-glass infiltrate or density in the superior segment of the right lower lobe. Consider dedicated evaluation of the chest. It measures 17 mm in diameter. Also noted is a small partially calcified right thyroid nodule measuring about 6-7 mm. This is of doubtful significance. The CT angiographic study shows atherosclerotic changes over the aortic arch. The great vessels are widely patent at their origins. In the posterior circulation, both vertebral arteries are approximately the same size and widely patent. The distal vertebral arteries have a normal appearance. There is smooth narrowing of the proximal half of the basilar artery. Maximum degree of stenosis is about 75%. In the carotid circulation, there is mild plaque noted across both bifurcations with no stenosis by NASCET criteria. The distal carotids up [facility] [place]. [facility] A Service of [facility] & [facility] RADIOLOGY TEXT RESULTS PATIENT: ALEXANDER QUINONEZ LOCATION: CICCU3 CICCU3-21 : 36 UNIT #: [id number] AGE: [address]: Thiago Villaseñor MD SEX: F ORDER DR: through the siphons are widely patent. In the intracranial circulation, there is a stenosis of approximately 70% in the distal M1 segment on the right. There is no evidence of distal embolization. There is also smooth severe stenosis of the right posterior cerebral artery in the distal P2 segment just before it bifurcates. Degree of stenosis is approximately 80% over a short segment. No aneurysms or vascular malformations are seen. IMPRESSION 1. Significant atherosclerotic intracranial disease, most prominently involving the proximal half of the basilar artery, the distal P2 segment of the posterior cerebral artery on the right, and the distal aspect of the right M1 segment. 2. Both carotid bifurcations are widely patent with no stenosis by NASCET criteria. 3. No major branch vessel cutoff is seen intracranially. 4. Nonspecific ground-glass infiltrate or a mass superior segment right lower lobe. Consider dedicated chest CT for further evaluation. STAT * RESULT Dictated by... Tyler Arriaga M.D. THIS IS AN ELECTRONICALLY VERIFIED REPORT Tyler Arriaga M.D. at 05/06/2017 4:33 PM ROLLY/kacie TD: 05/06/2017 10:45 JOB #: [id number] MEDICAL IMAGING REPORT Page 1 of 1 COPY
--- NOTE | ~2017-05-06 | CT71 ---
[facility] A Service of [facility] & [facility] RADIOLOGY TEXT RESULTS PATIENT: ALEXANDER QUINONEZ LOCATION: [address]-21 : 36 UNIT #: [id number] AGE: [address]: JUAN GARZA V SEX: F ORDER DR: [id number] [facility] [address] [place], [place] [address] [id number] I MR#: [id number] Acc #: [id number] NAME: ALEXANDER QUINONEZ : 1935 SEX: F STUDY DATE/TIME: 05/07/2017 10:33 [facility] STUDY DESCRIPTION: CT Head Wo Contrast Attending Physician: Juan Garza Ordering Physician: Thiago Villaseñor M.D. Primary Care Physician: Primary Care Physician No MEDICAL IMAGING REPORT This report is preliminary unless electronic signature is present EXAM CT head, 05/07/2017 HISTORY Followup from scan done 05/06/2017 for possible CVA. Fall. Left side weakness, slurred speech, 05/06/2017 24-hour post Alteplase treatment. TECHNIQUE CT head performed skull base through vertex. This CT exam was performed with one or more of the following radiation dose reduction techniques: automatic exposure control, adjustment of mA and/or kV according to patient size, and iterative reconstruction. COMPARISON CT head and MRI head, 05/06/2017 FINDINGS Evolution of right paracentral mid brain ischemic infarct. Better defined than on prior CT examination. It measures about 1.1 cm x 1.4 cm. No evidence of hemorrhagic conversion or significant mass effect. There may be some mild associated edema. No entirely new brainstem abnormality. The cerebellum and cerebral hemispheres show overall preservation of hinds matter-white matter differentiation. Areas of hypodensity associated encephalomalacia in the anterior-superior left frontal lobe and the posterior left parietal lobe most likely reflect prior vascular insult and are unchanged from the prior examination. Periventricular and deep white matter tract hypodensities bilaterally are unchanged and likely reflect sequelae of chronic microvascular ischemia. The midline structures are nondisplaced. There is no acute basal ganglia abnormality. The ventricles, cisterns and sulci show mild generalized enlargement consistent with generalized atrophy. There are cavernous carotid and distal vertebral arterial calcifications. The intraorbital soft tissues [facility]. [facility] A Service of [facility] RADIOLOGY TEXT RESULTS PATIENT: ALEXANDER QUINONEZ LOCATION: CIC3 CICCU3-21 : 36 UNIT #: [id number] AGE: [address]: JUAN GARZA V SEX: F ORDER DR: are unremarkable. There is no intra or extraaxial mass effect and no abnormal intracranial fluid collection. No acute sinus disease. No fracture. IMPRESSION 1. Right paracentral mid brain ischemic infarct shows continued evolution. Better defined. No hemorrhagic conversion. It measures about 1.1 cm x 1.4 cm. No entirely new brainstem findings. 2. No new findings elsewhere in the brain. Chronic changes include: Areas of chronic encephalomalacia anterior left frontal lobe and posterior left parietal lobe likely reflecting remote vascular insult, periventricular and deep white matter tract probable sequelae of chronic microvascular ischemia, atherosclerotic arterial calcifications, mild generalized atrophy. Dictated by... John Vo M.D. THIS IS AN ELECTRONICALLY VERIFIED REPORT John Vo M.D. at 05/07/2017 7:10 PM SANDRA/heather TD: 05/07/2017 14:35 JOB #: [id number] MEDICAL IMAGING REPORT Page 1 of 1 COPY
--- NOTE | ~2017-05-06 | CR229 ---
[facility] A Service of [facility] & [facility] RADIOLOGY TEXT RESULTS PATIENT: ALEXANDER QUINONEZ LOCATION: [facility] CICCU3-21 : 36 UNIT #: [id number] AGE: [address]: Thiago Villaseñor MD SEX: F ORDER DR: [id number] [facility] [address] [facility] [place], [place] [address] [id number] P MR#: [id number] Acc #: [id number] NAME: ALEXANDER QUINONEZ : 1935 SEX: F STUDY DATE/TIME: 05/06/2017 09:39 UNIT: [facility] ROOM: STUDY DESCRIPTION: CR Shoulder Min 2 View Lt Attending Physician: Thania Orourke M.D. Ordering Physician: Thania Orourke M.D. MEDICAL IMAGING REPORT This report is preliminary unless electronic signature is present EXAM Left shoulder 3 views 05/06/2017 0939 hours HISTORY 81-year-old woman with complaint of left shoulder pain, altered mental status and weakness today. COMPARISON None. FINDINGS AP views in internal-external rotation and a scapula Y-view demonstrate no acute fracture or dislocation. There is mild spurring at the glenohumeral joint and mild spurring at the acromioclavicular joint. IMPRESSION 1. No fracture, dislocation or soft tissue calcification. 2. There is moderate spurring at the acromioclavicular joint and mild spurring at the glenohumeral joint. Dictated by... Cayla Jade M.D. THIS IS AN ELECTRONICALLY VERIFIED REPORT Cayla Jade M.D. at 05/06/2017 2:31 PM ELLIE/davide TD: 05/06/2017 10:55 JOB #: [id number] MEDICAL IMAGING REPORT Page 1 of 1 COPY
--- NOTE | ~2017-05-06 | CT72 ---
[facility] A Service of [facility] RADIOLOGY TEXT RESULTS PATIENT: ALEXANDER QUINONEZ LOCATION: [facility]3 CICCU3-21 : 36 UNIT #: [id number] AGE: [address]: Thiago Villaseñor MD SEX: F ORDER DR: [id number] [id number] [facility]. [place], [place] [address] [id number] P MR#: [id number] Acc #: [id number] NAME: ALEXANDER QUINONEZ : 1935 SEX: F STUDY DATE/TIME: 05/06/2017 8:55 UNIT: [facility] ROOM: STUDY DESCRIPTION: CT Head Wo Contrast Stroke Attending Physician: Thania Orourke M.D. Ordering Physician: Thania Orourke M.D. MEDICAL IMAGING REPORT This report is preliminary unless electronic signature is present EXAM Head CT without contrast HISTORY Left-sided weakness and slurred speech, onset this morning. TECHNIQUE Axial imaging was obtained through the head without contrast. This CT exam was performed with one or more of the following radiation dose reduction techniques: automatic exposure control, adjustment of mA and/or kV according to patient size, and iterative reconstruction. FINDINGS Generalized atrophy is noted. Chronic ischemic changes are seen around the ventricles and there is a chronic small cortical infarct in the left frontal lobe and in the left parietal lobe. There is no evidence of mass lesion, hemorrhage or edema. Extraaxial structures are unremarkable. IMPRESSION Generalized atrophy. Two small chronic infarcts are seen in the left MCA distribution, one in the frontal and the other in the parietal lobe. No acute findings in the right cerebral hemisphere. Dictated by... Tyler Arriaga M.D. THIS IS AN ELECTRONICALLY VERIFIED REPORT Tyler Arriaga M.D. at 05/06/2017 4:33 PM ROLLY/heather TD: 05/06/2017 09:46 JOB #: [id number] [facility] A Service [facility] RADIOLOGY TEXT RESULTS PATIENT: ALEXANDER QUINONEZ LOCATION: CICCU3 CICCU3-21 : 36 UNIT #: [id number] AGE: [address]: Thiago Villaseñor MD SEX: F ORDER DR: MEDICAL IMAGING REPORT Page 1 of 1 COPY
--- NOTE | ~2017-05-06 | EKG ---
PATIENT: ALEXANDER QUINONEZ UNIT #: [id number] Ventricular Rate: 59 BPM Atrial Rate: 59 BPM P-R Interval: 178 ms QRS Duration: 80 ms Q-T Interval: 448 ms QTC Calculation(Bezet): 443 ms Calculated R [place]: -17 degrees Calculated T [place]: 157 degrees Diagnosis Line: Sinus bradycardia with Premature atrial complexes Diagnosis Line: ST and T wave abnormality, consider anterolateral Diagnosis Line: ischemia Diagnosis Line: Abnormal ECG Diagnosis Line: No previous ECGs available Diagnosis Line: Confirmed by ANDREA MENDEZ MD ([id number]) on Diagnosis Line: 05/07/2017 9:03:02 AM INTERPRETING MD: ANDREA FAJARDO
--- NOTE | ~2017-05-06 | CR72 ---
[facility] A Service of [facility] RADIOLOGY TEXT RESULTS PATIENT: ALEXANDER QUINONEZ LOCATION: [facility]3-21 : 36 UNIT #: [id number] AGE: [address]: Thiago Villaseñor MD SEX: F ORDER DR: [id number] [facility] [address]. [place], [place] [address] [id number] MR#: [id number] #: [id number] NAME: ALEXANDER QUINONEZ : 1935 SEX: F STUDY DATE/TIME: 05/06/2017 09:38 UNIT: [facility] ROOM: STUDY DESCRIPTION: CR Chest Single View Portable Attending Physician: Thania Orourke M.D. Ordering Physician: Thania Orourke M.D. MEDICAL IMAGING REPORT This report is preliminary unless electronic signature is present EXAM Chest portable, 05/06/2017 09:38 hours HISTORY 81-year-old with history of diabetes complaining of left body weakness, left shoulder and hip pain, altered mental status today. COMPARISON None FINDINGS Portable upright chest demonstrates moderate enlargement of the cardiac silhouette with tortuous aorta. Pulmonary vascularity is mildly prominent. There is no definite edema or effusion. Question is raised of a nodule in the right mid lung just lateral to the hilum measuring 1.1 cm. This could represent confluence of vessels however, true lung nodule cannot be excluded. IMPRESSION 1. Slightly low lung volumes with moderate cardiomegaly and tortuous aorta. There is pulmonary venous distension without definite edema or effusion. 2. Lateral to the right hilum there is a 1.1 cm nodular density which could represent a true pulmonary parenchymal nodule or could be related to superimposition of normal vessels. Consider further evaluation with upright two-view chest film when possible. If this cannot be performed, consider followup chest CT to exclude a lung nodule or mass. STAT * RESULT [facility] A Service of [facility] RADIOLOGY TEXT RESULTS PATIENT: ALEXANDER QUINONEZ LOCATION: [address] : 36 UNIT #: [id number] AGE: [address]: Thiago Villaseñor MD SEX: F ORDER DR: Dictated by... Cayla Jade M.D. THIS IS AN ELECTRONICALLY VERIFIED REPORT Cayla Jade M.D. at 05/06/2017 2:31 PM Levi TD: 05/06/2017 10:11 JOB #: [id number] MEDICAL IMAGING REPORT Page 1 of 1 COPY
--- NOTE | ~2017-05-06 | CO ---
Unit #: [id number] #: [id number] Patient: ALEXANDER JOHN [id number] [address] [id number] MR#: [id number] NAME: ALEXANDER JOHN ROOM: 327 Age: 81 Sex: F Admission Date: 05/06/2017 : 1935 Attending Physician: Marge Ronquillo M.D. Primary Care Physician: Primary Care Physician No Consultation Date: 05/12/2017 CONSULTATION REPORT HISTORY OF PRESENT ILLNESS Ms. John is an 81-year-old female, who was admitted to the hospital with an acute cerebrovascular accident on 05/06/2017 and underwent tPA treatment. She has some residual left hemiparesis and dysphagia and has been unable to maintain adequate nutrition or take oral medications. Her physicians discussed the feeding tube with the son and he has requested a PEG be placed for long-term nutritional support. In discussing the procedure with the patient, she is in agreement. I spoke with her son and he also was in agreement. PAST MEDICAL HISTORY Dementia, borderline diabetes, prior infarcts, recent CVA. She has a lower midline scar consistent with a hysterectomy or , but the patient could not remember. ALLERGIES No allergies to medication. IMMUNIZATION STATUS Unknown. CURRENT MEDICATIONS Include hydrochlorothiazide, Zestril, Lovenox, Plavix, aspirin, Catapres, NovoLog, hydralazine, Lipitor. She had a pneumonia vaccine. FAMILY HISTORY Unknown. SOCIAL HISTORY skilled nursing resident. No tobacco, alcohol or drugs. . REVIEW OF SYSTEMS Otherwise unremarkable. PHYSICAL EXAMINATION GENERAL: She is awake and alert, but somewhat confused and even though she answers questions, it is hard to know how much she fully comprehends. VITAL SIGNS: Temperature is 98.3, pulse 57, respirations 19, blood pressure 134/62. HEENT: Unremarkable. CARDIAC: Regular rhythm. LUNGS: Clear. ABDOMEN: Soft. No upper midline scars. EXTREMITIES: Trace edema. Unit #: [id number] #: [id number] Patient: ALEXANDER JOHN DIAGNOSTIC STUDIES LABORATORY RESULTS: Basic metabolic panel, and CBC are normal. ASSESSMENT AND PLAN An 81-year-old female, status post stroke with dysphagia and inability to take her oral medications or adequate nutrition per speech and language pathology evaluation. PEG has been requested. I discussed the procedure with the son including risks, benefits, and complications, and he understands and agrees to proceed. Dictated by... Lauri Forman/irma TD: 05/13/2017 04:51 JOB #: [id number] CONSULTATION REPORT Page 1 of 1 X Tyler Anthony MD X CONSULTATION REPORT
[2017-05-06 09:32] LABS: BASOPHIL# 0.1 X10e3 (0-0.3); BASOPHIL% 0.8 % (0-2.5); EOSINOPHIL# 0.1 X10e3 (0-0.7); EOSINOPHIL% 0.9 % (0.0-7.0); HEMATOCRIT 35.7 % (35.0-45.0); HEMOGLOBIN 11.5 gm/dL (12.0-16.0); LYMPHOCYTE# 1.6 X10e3 (1.0-3.5); MEAN CELL VOLUME 85.7 FL (83-96); MEAN CORPUSCULAR HEMOGLOBIN 27.6 PG (28-34); MEAN CORPUSCULAR HGB CONC 32.3 g/dL (30-36); MEAN PLATELET VOLUME 8.2 FL (6.5-11.5); MONOCYTE# 0.6 X10e3 (0-1.0); MONOCYTE% 6.4 % (3.0-12.0); NEUTROPHIL# 6.9 X10e3 (1.5-7.1); NEUTROPHIL% 74.9 % (40-75); PLATELET COUNT 142 X10e3 (140-420); RED BLOOD COUNT 4.17 X10e (3.90-5.30); RED CELL DISTRIBUTION WIDTH 14.2 % (11.0-15.5); WHITE BLOOD COUNT 9.2 X10e3 (4.0-10.5)
[2017-05-06 09:38] LABS: DIFF IND NO
[2017-05-06 09:44] LABS: POC - CKMB 1.3 ng/mL (0.0-7.9); POC - TROPONIN <0.05 ng/mL (<=0.05)
[2017-05-06 09:46] LABS: PARTIAL THROMBOPLASTIN TIME 20.1 SECONDS (23.5-31.3); PROTHROMBIN TIME (PATIENT) 10.7 SECONDS (10.0-11.7)
[2017-05-06 09:57] LABS: ALBUMIN SERUM 3.3 g/dL (3.5-5.0); BILIRUBIN, DIRECT 0.2 mg/dL (0.0-0.2); BILIRUBIN,INDIRECT 0.5 mg/dL (0.0-0.9); BILIRUBIN,TOTAL 0.7 mg/dL (0.2-2.0); CALCIUM SERUM 8.6 mg/dL (8.4-10.2); CREATININE SERUM 0.8 mg/dL (0.6-1.4); GLOM FILT RATE Estimated 69.7 mL/min (>60); POTASSIUM 3.4 mmol/L (3.5-5.1); PROTEIN TOTAL SERUM 6.8 g/dL (6.0-8.3); URINE SOURCE CLEAN CATCH
[2017-05-06 10:06] LABS: URINE APPEARANCE CLEAR; URINE BILIRUBIN NEG (NEG); URINE BLOOD NEG (NEG); URINE COLOR YELLOW; URINE GLUCOSE 100 MG/DL (NEG); URINE KETONE 1+ (NEG); URINE LEUKOCYTE ESTERASE NEG (NEG); URINE NITRATE NEG (NEG); URINE PH 6.5 (5-8); URINE PROTEIN NEG (NEG); URINE SPECIFIC GRAVITY 1.033 (1.003-1.035); URINE UROBILINOGEN 0.2 MG/DL (NEG)
[2017-05-06 10:09] LABS: CULTURE INDICATED? NO
[2017-05-06 15:11] LABS: POC - CREATININE 0.77 mg/dL (0.44-1.03); POC - GFR >60.0 mL/min (>60)
[2017-05-07 12:53] LABS: INR 1.1; PROTHROMBIN TIME (PATIENT) 11.7 SECONDS (10.0-11.7)
[2017-05-07 13:15] LABS: ALBUMIN SERUM 3.1 g/dL (3.5-5.0); BILIRUBIN,TOTAL 0.6 mg/dL (0.2-2.0); CALCIUM SERUM 8.7 mg/dL (8.4-10.2); CREATININE SERUM 0.5 mg/dL (0.6-1.4); GLOM FILT RATE Estimated 91.4 mL/min (>60); POTASSIUM 3.6 mmol/L (3.5-5.1); PROTEIN TOTAL SERUM 6.3 g/dL (6.0-8.3)
[2017-05-07 14:02] LABS: %MB 2.5 % (0.0-4.0); MB 3.9 ng/ml
[2017-05-07 14:04] LABS: BASOPHIL# 0.1 X10e3 (0-0.3); BASOPHIL% 0.5 % (0-2.5); EOSINOPHIL# 0.1 X10e3 (0-0.7); EOSINOPHIL% 0.4 % (0.0-7.0); HEMATOCRIT 42.3 % (35.0-45.0); LYMPHOCYTE# 1.1 X10e3 (1.0-3.5); LYMPHOCYTE% 8.1 % (17.0-45.0); MEAN CELL VOLUME 85.2 FL (83-96); MEAN CORPUSCULAR HEMOGLOBIN 27.4 PG (28-34); MEAN CORPUSCULAR HGB CONC 32.2 g/dL (30-36); MEAN PLATELET VOLUME 8.7 FL (6.5-11.5); MONOCYTE# 1.1 X10e3 (0-1.0); MONOCYTE% 7.5 % (3.0-12.0); NEUTROPHIL# 11.8 X10e3 (1.5-7.1); NEUTROPHIL% 83.5 % (40-75); PLATELET COUNT 170 X10e3 (140-420); RED BLOOD COUNT 4.97 X10e (3.90-5.30); RED CELL DISTRIBUTION WIDTH 14.4 % (11.0-15.5)
[2017-05-07 14:06] LABS: DIFF IND NO; HEMOGLOBIN 13.6 gm/dL (12.0-16.0); WHITE BLOOD COUNT 14.1 X10e3 (4.0-10.5)
[2017-05-09 06:26] LABS: BASOPHIL% 0.3 % (0-2.5); HEMATOCRIT 39.9 % (35.0-45.0); HEMOGLOBIN 12.8 gm/dL (12.0-16.0); LYMPHOCYTE# 1.2 X10e3 (1.0-3.5); LYMPHOCYTE% 8.9 % (17.0-45.0); MEAN CELL VOLUME 85.4 FL (83-96); MEAN CORPUSCULAR HEMOGLOBIN 27.5 PG (28-34); MEAN CORPUSCULAR HGB CONC 32.2 g/dL (30-36); MEAN PLATELET VOLUME 8.3 FL (6.5-11.5); MONOCYTE# 1.6 X10e3 (0-1.0); MONOCYTE% 11.8 % (3.0-12.0); NEUTROPHIL# 10.8 X10e3 (1.5-7.1); PLATELET COUNT 182 X10e3 (140-420); RED BLOOD COUNT 4.67 X10e (3.90-5.30); WHITE BLOOD COUNT 13.6 X10e3 (4.0-10.5)
[2017-05-09 06:30] LABS: ALBUMIN SERUM 2.6 g/dL (3.5-5.0); BILIRUBIN,TOTAL 0.9 mg/dL (0.2-2.0); CALCIUM SERUM 8.6 mg/dL (8.4-10.2); CREATININE SERUM 0.5 mg/dL (0.6-1.4); GLOM FILT RATE Estimated 91.4 mL/min (>60); POTASSIUM 3.1 mmol/L (3.5-5.1); PROTEIN TOTAL SERUM 6.1 g/dL (6.0-8.3)
[2017-05-09 06:33] LABS: DIFF IND NO
[2017-05-10 05:42] LABS: HEMATOCRIT 38.3 % (35.0-45.0); HEMOGLOBIN 12.4 gm/dL (12.0-16.0); MEAN CELL VOLUME 85.1 FL (83-96); MEAN CORPUSCULAR HEMOGLOBIN 27.5 PG (28-34); MEAN CORPUSCULAR HGB CONC 32.3 g/dL (30-36); MEAN PLATELET VOLUME 8.3 FL (6.5-11.5); RED BLOOD COUNT 4.5 X10e (3.90-5.30); RED CELL DISTRIBUTION WIDTH 14.6 % (11.0-15.5); WHITE BLOOD COUNT 11.2 X10e3 (4.0-10.5)
[2017-05-10 06:34] LABS: BUN/CREATININE RATIO 23.33; CALCIUM SERUM 8.6 mg/dL (8.4-10.2); CREATININE SERUM 0.6 mg/dL (0.6-1.4); GLOM FILT RATE Estimated 86.1 mL/min (>60); POTASSIUM 3.3 mmol/L (3.5-5.1)
[2017-05-11 05:22] LABS: HEMATOCRIT 38.7 % (35.0-45.0); HEMOGLOBIN 12.5 gm/dL (12.0-16.0); MEAN CELL VOLUME 85.5 FL (83-96); MEAN CORPUSCULAR HEMOGLOBIN 27.6 PG (28-34); MEAN CORPUSCULAR HGB CONC 32.3 g/dL (30-36); MEAN PLATELET VOLUME 8.1 FL (6.5-11.5); RED BLOOD COUNT 4.52 X10e (3.90-5.30); RED CELL DISTRIBUTION WIDTH 15.2 % (11.0-15.5); WHITE BLOOD COUNT 11.4 X10e3 (4.0-10.5)
[2017-05-11 05:50] LABS: BUN/CREATININE RATIO 26.66; CALCIUM SERUM 8.4 mg/dL (8.4-10.2); CREATININE SERUM 0.6 mg/dL (0.6-1.4); GLOM FILT RATE Estimated 86.1 mL/min (>60); POTASSIUM 3.6 mmol/L (3.5-5.1)
[2017-05-12 07:15] LABS: HEMATOCRIT 36.3 % (35.0-45.0); HEMOGLOBIN 11.8 gm/dL (12.0-16.0); MEAN CELL VOLUME 85.7 FL (83-96); MEAN CORPUSCULAR HEMOGLOBIN 27.8 PG (28-34); MEAN CORPUSCULAR HGB CONC 32.4 g/dL (30-36); MEAN PLATELET VOLUME 8.3 FL (6.5-11.5); RED BLOOD COUNT 4.24 X10e (3.90-5.30); RED CELL DISTRIBUTION WIDTH 14.3 % (11.0-15.5); WHITE BLOOD COUNT 8.7 X10e3 (4.0-10.5)
[2017-05-12 07:52] LABS: CALCIUM SERUM 8.4 mg/dL (8.4-10.2); CREATININE SERUM 0.6 mg/dL (0.6-1.4); GLOM FILT RATE Estimated 86.1 mL/min (>60); POTASSIUM 3.7 mmol/L (3.5-5.1)
[2017-05-13 05:42] LABS: HEMATOCRIT 38.8 % (35.0-45.0); HEMOGLOBIN 12.6 gm/dL (12.0-16.0); MEAN CELL VOLUME 84.5 FL (83-96); MEAN CORPUSCULAR HEMOGLOBIN 27.4 PG (28-34); MEAN CORPUSCULAR HGB CONC 32.4 g/dL (30-36); MEAN PLATELET VOLUME 8.6 FL (6.5-11.5); RED BLOOD COUNT 4.59 X10e (3.90-5.30); RED CELL DISTRIBUTION WIDTH 14.2 % (11.0-15.5)
[2017-05-13 05:57] LABS: PARTIAL THROMBOPLASTIN TIME 24.9 SECONDS (23.5-31.3); PROTHROMBIN TIME (PATIENT) 10.9 SECONDS (10.0-11.7)
[2017-05-13 06:34] LABS: CALCIUM SERUM 8.4 mg/dL (8.4-10.2); CREATININE SERUM 0.5 mg/dL (0.6-1.4); GLOM FILT RATE Estimated 91.4 mL/min (>60); PHOSPHOROUS 3.4 mg/dL (2.5-4.6); POTASSIUM 3.5 mmol/L (3.5-5.1)
[2017-05-14 05:25] LABS: HEMATOCRIT 39.7 % (35.0-45.0); HEMOGLOBIN 12.9 gm/dL (12.0-16.0); MEAN CORPUSCULAR HEMOGLOBIN 27.4 PG (28-34); MEAN CORPUSCULAR HGB CONC 32.6 g/dL (30-36); RED BLOOD COUNT 4.72 X10e (3.90-5.30); WHITE BLOOD COUNT 12.4 X10e3 (4.0-10.5)
[2017-05-14 05:57] LABS: CALCIUM SERUM 8.2 mg/dL (8.4-10.2); CREATININE SERUM 0.5 mg/dL (0.6-1.4); GLOM FILT RATE Estimated 91.4 mL/min (>60); POTASSIUM 3.2 mmol/L (3.5-5.1)
== END 2017-05-14 16:40 | DRG 61 ==
LOC: CED 08:44 → CEDOF 11:53 → C3A PCU 11:53 → CICCU3 12:25 → C3A PCU 05-08 16:23
PROVIDERS: Emergency Medicine; Internal Medicine; Nurse Practitioner; Specialist; Surgery
PROC: 3E03317 Introduction of Other Thrombolytic into Peripheral Vein, Percutaneous Approach (ICD-10-PCS; principal; 2017-05-06)
PROC: B24BZZZ Ultrasonography of Heart with Aorta (ICD-10-PCS; 2017-05-07)
PROC: 0DB68ZX Excision of Stomach, Via Natural or Artificial Opening Endoscopic, Diagnostic (ICD-10-PCS; 2017-05-13)
PROC: 0DH63UZ Insertion of Feeding Device into Stomach, Percutaneous Approach (ICD-10-PCS; 2017-05-13 15:30)
DX: I63.29 Cerebral infarction due to unspecified occlusion or stenosis of other precerebral arteries (principal); G92 Toxic encephalopathy; E87.2 Acidosis; G81.94 Hemiplegia, unspecified affecting left nondominant side; R13.12 Dysphagia, oropharyngeal phase; E44.1 Mild protein-calorie malnutrition; E11.65 Type 2 diabetes mellitus with hyperglycemia; K25.9 Gastric ulcer, unspecified as acute or chronic, without hemorrhage or perforation; E87.1 Hypo-osmolality and hyponatremia; E87.6 Hypokalemia; M79.89 Other specified soft tissue disorders; R00.1 Bradycardia, unspecified; Z68.32 Body mass index [BMI] 32.0-32.9, adult; E83.51 Hypocalcemia; F03.90 Unspecified dementia, unspecified severity, without behavioral disturbance, psychotic disturbance, mood disturbance, and anxiety; I10 Essential (primary) hypertension; I35.0 Nonrheumatic aortic (valve) stenosis; R47.81 Slurred speech; R47.1 Dysarthria and anarthria; I66.01 Occlusion and stenosis of right middle cerebral artery; K29.70 Gastritis, unspecified, without bleeding; E78.5 Hyperlipidemia, unspecified
CPT/HCPCS: 36415; 51702; 70450; 70496; 70498; 70551; 71010; 72040; 73030; 73070; 73502; 80048; 80053; 80061; 80076; 81003; 82550; 82553; 82565; 82947; 83036; 83735; 83880; 84100; 84443; 84484; 85025; 85027; 85610; 85730; 86140; 86850; 86900; 86901; 88305; 88312; 92507; 92523-GN; 92526; 92610; 93005; 93225; 93226; 93306; 93971; 96361; 96365; 97110; 97112; 97163; 97167; 97530; 97535; 99285; G8978-GP; G8979-GP; G8987-GO; G8988-GO; G8996-GN; G8997-GN; G9159-GN; G9160-GN; J0360; J0461; J0690; J1650; J1815; Q9967